=== PATIENT | male | born 1985 | race Two or more races ===

== ENCOUNTER 2024-05-19 19:32 | Emergency (ER) | payer OTHER ==
[~2024-05-19] VITALS: Ht 170.2 cm; Wt 79.8 kg
[2024-05-19] MEDS ORDERED: ZESTRIL20 MG PO (20:37)
[2024-05-19] MEDS ORDERED: NIFEDIPINE 10 MG CAPSULE PO ONE (21:00)
[2024-05-19 21:28] LABS: HEMATOCRIT 44.1 % (39.0-48.0); HEMOGLOBIN 15.3 g/dL (13-16.00); MEAN CELL VOLUME 85.7 fL (80.0-100.00); MEAN CORPUSCULAR HEMOGLOBIN 29.8 pg (27.00-32.0); MEAN CORPUSCULAR HGB CONC 34.8 g/dl (32.0-36.0); PLATELET COUNT 215 K/uL (150-450); RED BLOOD COUNT 5.15 M/uL (4.00-6.00); RED CELL DISTRIBUTION WIDTH 12.8 % (11.5-14.5)
[2024-05-19 21:52] LABS: ALBUMIN 3.9 gm/dL (3.4-5.0); BILIRUBIN TOTAL 0.3 mg/dL (0.3-1.2); CALCIUM 8.8 mg/dL (8.5-10.1); CREATININE SERUM 0.95 mg/dL (0.70-1.30); GFR 89.21; GLOBULINA 3.2 G/DL (2.4-3.5); POTASSIUM 3.88 mEq/L (3.5-5.1); TOTAL PROTEIN 7.1 gm/dL (6.4-8.2)
[2024-05-19] MEDS ORDERED: COZAAR25 MG PO (22:38)
== END 2024-05-19 22:47 | disposition home or self-care (01) ==
LOC: ER 19:35
PROVIDERS: General Practice
DX: I10 Essential (primary) hypertension (principal)